=== PATIENT | female | born 1940 ===

== ENCOUNTER 2020-03-02 22:35 | Emergency (ER) | payer OTHER ==
[~2020-03-02] VITALS: Ht 154.9 cm; Wt 74.8 kg
[2020-03-02] MEDS ORDERED: LUMIGAN2.5 M1 (22:52)
== END 2020-03-03 09:36 | disposition home or self-care (01) ==
LOC: ER 22:35 → EDBD 23:49 → ER 23:49
DX: N28.1 Cyst of kidney, acquired (principal); R10.2 Pelvic and perineal pain

== ENCOUNTER → 2020-06-25 | Emergency (ER) | payer OTHER ==
[~2020-06-25] VITALS: Ht 157.5 cm; Wt 72.6 kg
[~2020-06-25] MED LIST: CEFUROXIME250 MG PO; INTESTINEX680 M1 PO; LUMIGAN2.5 M1; TAMS0.4C PO
== END | disposition home or self-care (01) ==
LOC: ER 01:21
DX: N39.0 Urinary tract infection, site not specified (principal); R11.2 Nausea with vomiting, unspecified; R10.84 Generalized abdominal pain

== ENCOUNTER 2021-07-02 10:39 | Emergency (ER) | payer OTHER ==
[~2021-07-02] VITALS: Ht 157.5 cm; Wt 70.3 kg
== END 2021-07-03 17:04 | disposition left against medical advice (07) ==
LOC: ER 10:39
DX: U07.1 COVID-19 (principal); K50.00 Crohn's disease of small intestine without complications; Z91.041 Radiographic dye allergy status; Z88.0 Allergy status to penicillin; R11.10 Vomiting, unspecified; Z88.1 Allergy status to other antibiotic agents

== ENCOUNTER 2022-08-15 19:16 | Emergency (ER) | payer OTHER ==
[~2022-08-15] VITALS: Ht 160 cm; Wt 81.6 kg
== END 2022-08-16 14:07 | disposition home or self-care (01) ==
LOC: ER 19:16
DX: E87.6 Hypokalemia (principal); R10.9 Unspecified abdominal pain; R11.10 Vomiting, unspecified; K21.9 Gastro-esophageal reflux disease without esophagitis; I73.89 Other specified peripheral vascular diseases; Z91.041 Radiographic dye allergy status; Z88.2 Allergy status to sulfonamides